=== PATIENT | female | born 1990 | race Hispanic/Latino ===

== ENCOUNTER 2017-12-10 15:43 | Emergency (ER) | payer OTHER ==
[2017-12-10 16:29] VITALS: TEMP 98.5; O2SAT 98
--- NOTE | 2017-12-10 16:57 | ED PDOC ---
HPI: Abdomen History Per: Patient History/Exam Limitations: no limitations Onset/Duration Of Symptoms: Hrs Outside of [place] travel?: No Current Symptoms Are (Timing): Still Present Severity: Severe Pain Scale Rating Of: 9 Location Of Pain/Discomfort: Suprapubic Quality Of Discomfort: Sharp, Cramping Associated Symptoms: denies: Fever, Chills, Nausea Exacerbating Factors: Movement Alleviating Factors: None Last Bowel Movement: Today <Gabrielle Santamaria - Last Filed: 12/10/17 19:04> <Angle Palencia - Last Filed: 12/11/17 15:33> Time Seen by Provider: 12/10/17 16:35 Chief Complaint (Nursing): Abdominal Pain Additional Complaint(s): CC: Abdominal pain HPI: 27 YO female with PMHx of bipolar disorder presents to [facility] ED for abdominal pain. Pt states that pain started around 9AM this morning, suddenly. Pain worsened through the course of the day, no improvement with PO aleeve, worse with movement. No radiation of the pain, no movement of the pain. No radiation of the pain, no vaginal discharge, denies dysuria, hematuria, urinary frequency. Pt was seen in urgent care and sent to ED for further evaluation. LMP 11/18/17; currently sexually active with boyfriend, no hx of STIs. PMH: bipolar disease, IUD (05/24) SurgH: denies FH: denies SH: denies smoking and illicit drug use, social ETOH Allergies: NKDA Meds: abilify, lamictal (Rosalio,Gabrielle) Supervising Attending Note - Supervising Attending Note The Documented history was done by the: Physician Underwear Cutter The documented physical exam was done by the: Physician Underwear Cutter, Attending Physician - Attestation: I have personally seen and examined this patient.: Yes I have fully participated in the care of the patient.: Yes I have reviewed all pertinent clinical information: Yes <Angle Palencia - Last Filed: 12/11/17 15:33> Past Medical History - Medical History PMH: Bipolar Disorder - Surgical History Surgical History: No Surg Hx - Family History Family History: States: No Known Family Hx - Social History Current smoker - smoking cessation education provided: No Alcohol: Social Drugs: Denies <Gabrielle Santamaria - Last Filed: 12/10/17 19:04> <Angle Palencia F - Last Filed: 12/11/17 15:33> Vital Signs: Last Vital Signs Temp 98.5 F 12/10/17 16:25 Pulse 71 12/10/17 22:16 Resp 18 12/10/17 22:16 BP 118/64 12/10/17 22:16 Pulse Ox 98 12/10/17 22:16 - Allergies Allergies/Adverse Reactions: Allergies Allergy/AdvReac Type Severity Reaction Status Date / Time No Known Allergies Allergy Verified 12/10/17 16:25 Review of Systems Constitutional: Negative for: Fever, Chills Cardiovascular: Negative for: Chest Pain, Palpitations Respiratory: Negative for: Cough, Shortness of Breath Gastrointestinal: Positive for: Abdominal Pain. Negative for: Nausea, Vomiting Genitourinary Female: Negative for: Dysuria, Frequency, Hematuria, Vaginal Discharge, Vaginal Bleeding Neurological: Negative for: Weakness, Numbness Psych: Negative for: Anxiety <Sa Rosalioima - Last Filed: 12/10/17 19:04> Physical Exam - Physical Exam Appears: Positive for: Uncomfortable Skin: Positive for: Normal Color Eye Exam: Positive for: Normal appearance, EOMI Neck: Positive for: Painless ROM Cardiovascular/Chest: Positive for: Regular Rate, Rhythm. Negative for: Murmur Respiratory: Positive for: Normal Breath Sounds. Negative for: Wheezing Gastrointestinal/Abdominal: Positive for: Bowel Sounds, Soft, Tenderness (to palpation of the supapubic area R>L), Guarding, Other (psoas sign pos b/l). Negative for: Distended Back: Positive for: Normal Inspection. Negative for: L CVA Tenderness, R CVA Tenderness Extremity: Positive for: Normal ROM. Negative for: Tenderness Neurologic/Psych: Positive for: Alert, Oriented <RosalioGabrielle - Last Filed: 12/10/17 19:04> - Laboratory Results Result Diagrams: 12/10/17 17:59 12/10/17 17:59 - ECG O2 Sat by Pulse Oximetry: 98 <RosalioGabrielle - Last Filed: 12/10/17 19:04> - Laboratory Results Result Diagrams: 12/10/17 17:59 12/10/17 17:59 <Angle Palencia F - Last Filed: 12/11/17 15:33> - Progress ED Course And Treament: 27 YO Female with IUD is seen for suprapubic pain. VS stable. -cbc, cmp, udip, upreg -transvag u/s -CT abd and pelvis -morphine for pain 18:05: pt seen and reexamined. Pain mildly improved; but persistent. Blood work reviewed with patient sig for leukocytosis, afebrile Tranvag u/s good flow and no acute findings. IUD in place Ct abd and pelvis pending Pt endorsed to attending Dr. Palencia and Dr. Turcios (Gabrielle Santamaria) Disposition - Patient ED Disposition Is Patient to be Admitted: Transfer of Care - Disposition Disposition Time: 19:08 <Gabrielle Santamaria - Last Filed: 12/10/17 19:04> <Angle Palencia - Last Filed: 12/11/17 15:33> - Clinical Impression Clinical Impression: Abdominal pain, Pelvic pain - Disposition Condition: GOOD Additional Instructions: Take motrin for pain. Follow up with your PCP in 2-3 days. Return for worsening. Instructions: Acute Abdomen (Belly Pain), Adult (DC)
--- NOTE | 2017-12-10 17:33 | US ---
HISTORY: pelvic pain; rule out torsion COMPARISON: None available. TECHNIQUE: Grayscale, color Doppler and spectral evaluation the pelvis performed transvaginally FINDINGS: UTERUS: Measures 7.9 x 3.6 x 4.6 cm. Anteverted. Normal in size and appearance. No fibroid or other mass lesion seen. ENDOMETRIUM: Measures 7 mm in diameter. Intrauterine device in place. CERVIX: Unremarkable RIGHT OVARY: Measures 3.3 x 2.6 x 3.5 cm. No solid mass. Normal flow. LEFT OVARY: Measures 3.5 x 2.1 x 2.5 cm. No solid mass. Normal flow. FREE FLUID: Trace free fluid, likely physiologic. OTHER FINDINGS: None. IMPRESSION: Intrauterine device in place. Otherwise, unremarkable pelvic ultrasound.
[2017-12-10 18:15] LABS: BASO % 0.4 % (0.0-2.0); EOS % 0.2 % (0.0-4.0); HEMOGLOBIN 12.3 g/dL (12.0-16.0); LYMPH % 8.3 % (20.0-40.0); MEAN CELL VOLUME 87.3 fl (81.0-99.0); MEAN CORPUSCULAR HEMOGLOBIN 28.7 pg (27.0-31.0); MEAN CORPUSCULAR HGB CONC 32.8 g/dL (33.0-37.0); MEAN PLATELET VOLUME 8.1 fl (7.2-11.7); MONO # 0.6 K/uL (0.0-0.8); MONO % 4.6 % (0.0-10.0); NEUT # 10.3 K/uL (1.8-7.0); NEUT % 86.5 % (50.0-75.0); NRBC % 0.1 % (0.0-0.0); PLATELET COUNT 236 K/uL (130-400); RBC 4.28 Mil/uL (3.80-5.20); RED CELL DISTRIBUTION WIDTH 13.3 % (11.5-14.5); WHITE BLOOD COUNT 11.9 K/uL (4.8-10.8)
[2017-12-10 18:21] LABS: BLOOD UREA NITROGEN 10 mg/dl (7-17); GFR AFRICAN-AMERICAN > 60; GFR NON-AFRICAN AMERICAN > 60
[2017-12-10] MEDS ORDERED: Iohexol 300 100 ML IJ ONE (18:47)
[2017-12-10] MEDS ORDERED: Sodium Chloride 0.9% 100 ML ONE (18:48)
--- NOTE | 2017-12-10 19:30 | ED PDOC ---
- Laboratory Results Result Diagrams: 12/10/17 17:59 12/10/17 17:59 - ECG O2 Sat by Pulse Oximetry: 98 - Progress Re-evaluation Time: 21:50 Condition: Re-examined, Improved Medical Decision Making Medical Decision Making: Time: 1899 --Patient is endorsed to provider by Dr. Palencia, pending CT ABD/pelvis results and final disposition. Time: 1928 --CT ABD/pelvis FINDINGS: Tubes, lines and devices: Intrauterine device in place. Lower thorax: No acute findings. ABDOMEN: Liver: Normal. No mass. Gallbladder and bile ducts: Normal. No calcified stones. No ductal dilation. Pancreas: Normal. No ductal dilation. Spleen: Normal. No splenomegaly. Adrenals: Normal. No mass. Kidneys and ureters: Normal. No hydronephrosis. Stomach and bowel: Normal. No obstruction. No mucosal thickening. Appendix: No evidence of appendicitis. PELVIS: Bladder: Unremarkable as visualized. Reproductive: Unremarkable as visualized. ABDOMEN and PELVIS: Intraperitoneal space: Minimal free fluid in the pelvis is likely physiologic Bones/joints: No acute fracture. No dislocation. Soft tissues: Unremarkable. Vasculature: Normal. No abdominal aortic aneurysm. Lymph nodes: A few scattered inguinal nodes are probably reactive. IMPRESSION: No acute findings. IUD in place. Scribe Attestation: Documented by Yudy Mcfarland, acting as a scribe for Fawn Turcios MD. Provider Scribe Attestation: All medical record entries made by the Scribe were at my direction and personally dictated by me. I have reviewed the chart and agree that the record accurately reflects my personal performance of the history, physical exam, medical decision making, and the department course for this patient. I have also personally directed, reviewed, and agree with the discharge instructions and disposition. Disposition Doctor Will See Patient In The: Office Counseled Patient/Family Regarding: Studies Performed, Diagnosis, Need For Followup - Clinical Impression Clinical Impression: Abdominal pain, Pelvic pain - POA Present On Arrival: None - Disposition Disposition: Routine/Home Disposition Time: 21:51 Condition: GOOD Additional Instructions: Take motrin for pain. Follow up with your PCP in 2-3 days. Return for worsening. Instructions: Acute Abdomen (Belly Pain), Adult (DC)
[2017-12-10 20:00] LABS: ANISOCYTOSIS SLIGHT; EOSINOPHIL 1 % (0-7); LYMPHOCYTE 7 % (20-50); MONOCYTE 8 % (0-10); NEUTROPHIL 84 % (42-75); OVALOCYTES SLIGHT; PLATELET ESTIMATE NORMAL (NORMAL); TOTAL CELLS COUNTED 100
[2017-12-10 22:16] VITALS: BP 118/64; PULSE 71; RESP 18
--- NOTE | 2017-12-11 09:38 | CT ---
PROCEDURE: CT Abdomen and Pelvis with contrast HISTORY: abdominal pain COMPARISON: None. TECHNIQUE: Following the intravenous administration of iodinated contrast material, a CT examination of the abdomen and pelvis performed from the domes of the diaphragms to the symphysis pubis with reformatted datasets provided not only axial but also sagittal and coronal planes. Oral contrast was not administered as per referring physician request. Contrast dose: Omnipaque 300, 95 cc Radiation dose: Total exam DLP = 810.76 mGy-cm. This CT exam was performed using one or more of the following dose reduction techniques: Automated exposure control, adjustment of the mA and/or kV according to patient size, and/or use of iterative reconstruction technique. FINDINGS: LOWER THORAX: Unremarkable. LIVER: Unremarkable. No gross lesion or ductal dilatation. GALLBLADDER AND BILE DUCTS: Unremarkable. PANCREAS: Unremarkable. No gross lesion or ductal dilatation. SPLEEN: Normal splenic size. ADRENALS: Unremarkable. No mass. KIDNEYS AND URETERS: Unremarkable. No hydronephrosis. No solid mass. VASCULATURE: Unremarkable. No aortic aneurysm. BOWEL: Unremarkable. No obstruction. No gross mural thickening. APPENDIX: No CT evidence of appendicitis. PERITONEUM: Unremarkable. No free fluid. No free air. LYMPH NODES: Unremarkable. No enlarged lymph nodes. BLADDER: Unremarkable. REPRODUCTIVE: Unremarkable. BONES: No acute fracture. OTHER FINDINGS: Tiny umbilical hernia containing only fat. IMPRESSION: Unremarkable contrast enhanced CT of the abdomen and pelvis. Concordant preliminary report from [facility], 12/10/2017.
== END 2017-12-10 22:38 | disposition home or self-care (01) ==
LOC: H.ER 15:43
DX: R10.2 Pelvic and perineal pain (principal); F31.9 Bipolar disorder, unspecified; Z97.5 Presence of (intrauterine) contraceptive device
CPT/HCPCS: 74177; 76830; 80048; 81025; 85025; 96374; 96375; 99284; J1885; J2270; Q9967